=== PATIENT | female | born 1960 | race African-American/Black ===

== ENCOUNTER 2018-09-08 10:57 | Emergency (ER) | payer SELFPAY ==
[~2018-09-08] VITALS: Ht 152.4 cm; Wt 68.0 kg
[2018-09-08] MEDS ORDERED: HYDROCODONE/ACETAMINOPHEN 5/325MG TABLET PO ONE (15:00)
[2018-09-08 15:06] LABS: BASOPHILS % 0.9 % (0.0-2.0); EOSINOPHILS % 2.3 % (0.0-5.0); HEMATOCRIT. 38.5 % (36.0-48.0); HEMOGLOBIN. 12.8 g/dL (12.0-16.0); LYMPHOCYTES % 35.2 % (20.0-50.0); MEAN CORPUSCULAR HEMOGLOBIN 28.1 pg (28.0-32.0); MEAN CORPUSCULAR VOLUME 84.5 fL (81.0-99.0); MEAN PLATELET VOLUME 7.9 fl (7.4-10.4); MONOCYTES % 13.7 % (2.0-8.0); NEUTROPHILS % 47.9 % (40.0-76.0); PLATELET 188 x1000/uL (130-400); RED BLOOD CELL COUNT 4.56 mill/uL (4.2-5.4); RED CELL DISTRIBUTION WIDTH 16.3 % (11.6-14.6)
[2018-09-08] MEDS ORDERED: IBUPROFEN 800MG TABLET PO ONE (15:15)
[2018-09-08 15:17] LABS: CHLORIDE 113 mEq/L (98-107)
[2018-09-08 15:20] LABS: CLARITY URINE CLEAR (CLEAR); COLOR URINE YELLOW (YELLOW); KETONES URINE TRACE (NEGATIVE); LEUKOCYTE ESTERASE URINE NEGATIVE (NEGATIVE); NITRITE URINE NEGATIVE (NEGATIVE); OCCULT BLOOD URINE NEGATIVE (NEGATIVE); PH URINE 5.5 (4.5-8.0); PROTEIN URINE TRACE (NEGATIVE); SPECIFIC GRAVITY URINE 1.029 (1.005-1.030)
[2018-09-08 18:07] VITALS: BP 144/85
== END 2018-09-08 18:07 | disposition home or self-care (01) ==
LOC: ER 10:57
DX: R10.2 Pelvic and perineal pain (principal); D25.9 Leiomyoma of uterus, unspecified; F12.10 Cannabis abuse, uncomplicated; F17.210 Nicotine dependence, cigarettes, uncomplicated; Z98.890 Other specified postprocedural states; Z91.018 Allergy to other foods
CPT/HCPCS: 36415; 76830; 76856; 80048; 99284

== ENCOUNTER 2018-12-12 10:29 | Emergency (ER) | payer OTHER ==
[~2018-12-12] VITALS: Ht 154.9 cm; Wt 68.0 kg
[2018-12-12 11:46] LABS: BASOPHILS % 0.8 % (0.0-2.0); EOSINOPHILS % 0.5 % (0.0-5.0); HEMOGLOBIN. 12.6 g/dL (12.0-16.0); LYMPHOCYTES % 25.2 % (20.0-50.0); MEAN CORPUSCULAR HEMOGLOBIN 28.9 pg (28.0-32.0); MEAN PLATELET VOLUME 8.6 fl (7.4-10.4); MONOCYTES % 11.3 % (2.0-8.0); NEUTROPHILS % 62.2 % (40.0-76.0); PLATELET 183 x1000/uL (130-400); RED BLOOD CELL COUNT 4.35 mill/uL (4.2-5.4); RED CELL DISTRIBUTION WIDTH 16.2 % (11.6-14.6)
[2018-12-12 11:55] LABS: CHLORIDE 108 mEq/L (98-107)
[2018-12-12] MEDS ORDERED: HYDRALAZINE 20MG/ML VIAL IV ONE (18:30)
[2018-12-12 18:54] VITALS: BP 165/58
== END 2018-12-12 18:56 | disposition short-term general hospital (02) ==
LOC: ER 10:29
DX: R06.02 Shortness of breath (principal); I50.9 Heart failure, unspecified; I10 Essential (primary) hypertension; F17.210 Nicotine dependence, cigarettes, uncomplicated; F12.10 Cannabis abuse, uncomplicated; Z91.018 Allergy to other foods; Z91.14 Patient's other noncompliance with medication regimen; Z98.890 Other specified postprocedural states
CPT/HCPCS: 36415; 71045; 80053; 83880; 84484; 85025; 93005; 96374; 99285; J0360

== ENCOUNTER 2019-02-24 04:22 | Emergency (ER) | payer OTHER ==
[~2019-02-24] VITALS: Ht 154.9 cm; Wt 66.0 kg
[2019-02-24 05:02] LABS: BASOPHILS % 0.6 % (0.0-2.0); EOSINOPHILS % 1.4 % (0.0-5.0); HEMATOCRIT. 35.2 % (36.0-48.0); HEMOGLOBIN. 11.8 g/dL (12.0-16.0); MEAN CORPUSCULAR HEMOGLOBIN 28.6 pg (28.0-32.0); MEAN CORPUSCULAR VOLUME 85.2 fL (81.0-99.0); MEAN PLATELET VOLUME 8.2 fl (7.4-10.4); MONOCYTES % 9.3 % (2.0-8.0); NEUTROPHILS % 64.7 % (40.0-76.0); PLATELET 188 x1000/uL (130-400); RED BLOOD CELL COUNT 4.13 mill/uL (4.2-5.4); RED CELL DISTRIBUTION WIDTH 15.8 % (11.6-14.6)
[2019-02-24 05:08] LABS: CHLORIDE 111 mEq/L (98-107)
[2019-02-24] MEDS ORDERED: KETOROLAC 15MG/ML VIAL IV NR (05:30)
[2019-02-24] MEDS ORDERED: MORPHINE SULFATE 4 MG/ML CPJ (NOT FOR IM USE) IV NR (05:30)
[2019-02-24 06:08] VITALS: BP 145/59
== END 2019-02-24 06:11 | disposition home or self-care (01) ==
LOC: ER 04:22
DX: M54.9 Dorsalgia, unspecified (principal); I11.0 Hypertensive heart disease with heart failure; I50.9 Heart failure, unspecified; Z87.891 Personal history of nicotine dependence; Z91.018 Allergy to other foods
CPT/HCPCS: 36415; 71045; 80053; 83880; 84484; 85025; 93005; 96374; 99284; J1885

== ENCOUNTER 2020-11-08 19:35 | Inpatient (IN) | payer OTHER ==
[~2020-11-08] VITALS: Ht 154.9 cm; Wt 70.8 kg
[2020-11-08 20:31] LABS: BASOPHILS % 0.8 % (0.0-2.0); EOSINOPHILS % 1.5 % (0.0-5.0); HEMATOCRIT. 37.3 % (36.0-48.0); HEMOGLOBIN. 12.8 g/dL (12.0-16.0); LYMPHOCYTES % 28.8 % (20.0-50.0); MEAN CORPUSCULAR HEMOGLOBIN 28.5 pg (28.0-32.0); MEAN CORPUSCULAR VOLUME 82.9 fL (81.0-99.0); MEAN PLATELET VOLUME 7.9 fl (7.4-10.4); MONOCYTES % 8.6 % (2.0-8.0); NEUTROPHILS % 60.3 % (40.0-76.0); PLATELET 224 x1000/uL (130-400); RED CELL DISTRIBUTION WIDTH 14.9 % (11.6-14.6)
[2020-11-08 20:34] LABS: CHLORIDE 106 mEq/L (98-107)
[2020-11-09] MEDS ORDERED: HYDROCODONE/ACETAMINOPHEN 5/325MG TABLET PO PRN (00:45)
[2020-11-09 02:00] VITALS: BP 147/38
[2020-11-09] MEDS ORDERED: FURO40TA5 PO (03:17)
[2020-11-09] MEDS ORDERED: ATOR10TA PO (03:17)
[2020-11-09] MEDS ORDERED: AMLO-79 PO (03:17)
[2020-11-09 04:00] VITALS: BP 121/32
[2020-11-09 08:00] VITALS: BP 118/74
[2020-11-09] MEDS ORDERED: FUROSEMIDE 40MG/4ML VIAL IVP SCH (09:00)
[2020-11-09] MEDS ORDERED: AMLODIPINE 5MG TABLET PO SCH (09:00)
[2020-11-09] MEDS ORDERED: ASPIRIN 81MG TABLET PO SCH (09:00)
[2020-11-09] MEDS ORDERED: ENOXAPARIN 40MG/0.4ML SYR SUBCUT SCH (09:00)
[2020-11-09] MEDS ORDERED: LISINOPRIL 10MG TABLET PO SCH (09:00)
[2020-11-09 12:00] VITALS: BP 136/40
[2020-11-09] MEDS ORDERED: ONDANSETRON HCL 4MG/2ML INJ IV PRN (13:15)
[2020-11-09 15:09] VITALS: BP 136/40
[2020-11-09] MEDS ORDERED: ATORVASTATIN CALCIUM 40MG TABLET PO SCH (21:00)
== END 2020-11-09 17:08 | disposition home or self-care (01) | DRG 293 ==
LOC: ER 19:35 → 6WST 23:54 → EDBEDREQ 23:58 → EDBEDREQTM 23:58 → ENRESERV 11-09 01:19
PROVIDERS: ADMIT Internal Medicine; ATTEND Internal Medicine
DX: I11.0 Hypertensive heart disease with heart failure (principal); I50.43 Acute on chronic combined systolic (congestive) and diastolic (congestive) heart failure; Z91.018 Allergy to other foods; Z91.11 Patient's noncompliance with dietary regimen; Z91.19 Patient's noncompliance with other medical treatment and regimen
CPT/HCPCS: 36415; 71045; 80053; 83880; 84484; 85025; 93005; 93306; 99285; J1650; J1940; J2405

== ENCOUNTER 2021-01-13 03:09 | Emergency (ER) | payer OTHER ==
[~2021-01-13] VITALS: Ht 154.9 cm; Wt 68.0 kg
[~2021-01-13 03:09] MED LIST: AMLO-79 PO; ATOR10TA PO; FURO40TA5 PO
[2021-01-13] MEDS ORDERED: NAPR500T7 PO (03:23)
[2021-01-13 04:29] VITALS: BP 126/74
== END 2021-01-13 04:30 | disposition home or self-care (01) ==
LOC: ER 03:28
DX: G89.29 Other chronic pain (principal); R07.89 Other chest pain; I11.0 Hypertensive heart disease with heart failure; I50.9 Heart failure, unspecified; Z91.018 Allergy to other foods
CPT/HCPCS: 93005; 99283

== ENCOUNTER 2021-05-10 22:28 | Emergency (ER) | payer OTHER ==
[~2021-05-10] VITALS: Ht 154.9 cm; Wt 68.0 kg
[~2021-05-10 22:28] MED LIST changes: +NAPR500T7 PO
[2021-05-11 01:25] LABS: BASOPHILS % 0.5 % (0.0-2.0); EOSINOPHILS % 2.2 % (0.0-5.0); HEMATOCRIT. 34.8 % (36.0-48.0); HEMOGLOBIN. 11.3 g/dL (12.0-16.0); LYMPHOCYTES % 34.7 % (20.0-50.0); MEAN CORPUSCULAR HEMOGLOBIN 26.3 pg (28.0-32.0); MEAN CORPUSCULAR VOLUME 80.7 fL (81.0-99.0); MEAN PLATELET VOLUME 7.8 fl (7.4-10.4); MONOCYTES % 9.2 % (2.0-8.0); NEUTROPHILS % 53.4 % (40.0-76.0); PLATELET 235 x1000/uL (130-400); RED BLOOD CELL COUNT 4.31 mill/uL (4.2-5.4); RED CELL DISTRIBUTION WIDTH 17.5 % (11.6-14.6)
[2021-05-11 01:31] LABS: CHLORIDE 109 mEq/L (98-107)
[2021-05-11] MEDS ORDERED: MORPHINE SULFATE 2 MG/ML CPJ (NOT FOR IM USE) IV ONE (04:15)
[2021-05-11] MEDS ORDERED: ONDANSETRON HCL 4MG/2ML INJ IV ONE (04:15)
[2021-05-11] MEDS ORDERED: ASPIRIN 325MG EC TABLET PO ONE (04:30)
[2021-05-11 06:03] VITALS: BP 129/87
== END 2021-05-11 06:05 | disposition home or self-care (01) ==
LOC: ER 22:28
DX: R07.89 Other chest pain (principal); I11.0 Hypertensive heart disease with heart failure; I50.9 Heart failure, unspecified; Z98.890 Other specified postprocedural states
CPT/HCPCS: 36415; 71045; 80053; 83880; 84484; 85025; 93005; 99285

== ENCOUNTER 2021-05-29 02:08 | Emergency (ER) | payer OTHER ==
[~2021-05-29] VITALS: Ht 154.9 cm; Wt 69.0 kg
[2021-05-29] MEDS ORDERED: IPRATROPIUM BROMIDE (0.02%) 0.5MG/2.5ML NEB HHN STA (02:39)
[2021-05-29] MEDS ORDERED: NITROGLYCERIN 0.4MG TABLET SL SL PRN (02:45)
[2021-05-29 03:07] LABS: BASOPHILS % 0.8 % (0.0-2.0); HEMATOCRIT. 32.9 % (36.0-48.0); HEMOGLOBIN. 10.9 g/dL (12.0-16.0); LYMPHOCYTES % 20.8 % (20.0-50.0); MEAN CORPUSCULAR HEMOGLOBIN 26.5 pg (28.0-32.0); MEAN CORPUSCULAR VOLUME 79.7 fL (81.0-99.0); MEAN PLATELET VOLUME 7.7 fl (7.4-10.4); MONOCYTES % 7.7 % (2.0-8.0); NEUTROPHILS % 69.7 % (40.0-76.0); PLATELET 203 x1000/uL (130-400); RED BLOOD CELL COUNT 4.13 mill/uL (4.2-5.4); RED CELL DISTRIBUTION WIDTH 17.5 % (11.6-14.6)
[2021-05-29 03:13] LABS: CHLORIDE 113 mEq/L (98-107)
[2021-05-29] MEDS: ASPIRIN 81MG TABLET PO ONE (03:16)
[2021-05-29] MEDS: PREDNISONE 20MG TABLET PO STA (03:16)
[2021-05-29] MEDS: ALBUTEROL (0.083%) 2.5MG/3ML NEB HHN STA (03:50)
[2021-05-29] MEDS: FUROSEMIDE 100MG/10ML VIAL IVP NR (03:55)
[2021-05-29] MEDS: ONDANSETRON HCL 4MG/2ML INJ IV PRN (04:04)
[2021-05-29 13:21] VITALS: BP 128/55
== END 2021-05-29 13:22 | disposition left against medical advice (07) ==
LOC: ER 02:08 → CANBEDREQ 05-30 01:11
DX: I50.9 Heart failure, unspecified (principal); R01.1 Cardiac murmur, unspecified; Z87.891 Personal history of nicotine dependence; Z91.018 Allergy to other foods; Z20.822 Contact with and (suspected) exposure to COVID-19
CPT/HCPCS: 36415; 71045; 80053; 83880; 84484; 85025; 87426; 93005; 94640; 96374; 96375; 99291; J1940; J2405; J7512; Z7610

== ENCOUNTER 2021-06-06 01:57 | Inpatient (IN) | payer OTHER ==
[~2021-06-06] VITALS: Ht 154.9 cm; Wt 82.6 kg
[2021-06-06] MEDS ORDERED: ASPIRIN 81MG TABLET PO ONE (02:30)
[2021-06-06] MEDS ORDERED: ACETAMINOPHEN 325MG TABLET PO ONE (02:30)
[2021-06-06] MEDS ORDERED: FUROSEMIDE 40MG TABLET PO ONE (02:30)
[2021-06-06 02:35] LABS: BASOPHILS % 0.8 % (0.0-2.0); EOSINOPHILS % 1.8 % (0.0-5.0); HEMOGLOBIN. 11.3 g/dL (12.0-16.0); LYMPHOCYTES % 24.7 % (20.0-50.0); MEAN CORPUSCULAR HEMOGLOBIN 26.5 pg (28.0-32.0); MEAN PLATELET VOLUME 7.8 fl (7.4-10.4); MONOCYTES % 7.7 % (2.0-8.0); PLATELET 198 x1000/uL (130-400); RED BLOOD CELL COUNT 4.25 mill/uL (4.2-5.4)
[2021-06-06 02:39] LABS: CHLORIDE 111 mEq/L (98-107)
[2021-06-06] MEDS ORDERED: NALOXONE HCL 0.4MG/ML VIAL IV PRN (07:00)
[2021-06-06] MEDS ORDERED: HYDROCODONE/ACETAMINOPHEN 10/325MG TABLET PO PRN (07:00)
[2021-06-06] MEDS ORDERED: IPRATROPIUM/ALBUTEROL 0.5-3(2.5)MG/3ML NEB HHN PRN (07:00)
[2021-06-06 12:14] LABS: CLARITY URINE CLEAR (CLEAR); COLOR URINE YELLOW (YELLOW); KETONES URINE NEGATIVE (NEGATIVE); LEUKOCYTE ESTERASE URINE NEGATIVE (NEGATIVE); NITRITE URINE NEGATIVE (NEGATIVE); OCCULT BLOOD URINE NEGATIVE (NEGATIVE); PH URINE 6.5 (4.5-8.0); PROTEIN URINE NEGATIVE (NEGATIVE); SPECIFIC GRAVITY URINE 1.017 (1.005-1.030)
[2021-06-06] MEDS ORDERED: ONDANSETRON HCL 4MG/2ML INJ IV PRN (14:45)
[2021-06-06] MEDS ORDERED: ACETAMINOPHEN 325MG TABLET PO PRN (14:45)
[2021-06-06] MEDS: FUROSEMIDE 40MG/4ML VIAL IVP SCH (15:47)
[2021-06-06 16:00] VITALS: BP 159/69
[2021-06-06 16:18] VITALS: BP 159/69
[2021-06-06 20:00] VITALS: BP 143/52
[2021-06-06] MEDS ORDERED: ZOLPIDEM TARTRATE 5MG TABLET PO PRN (20:30)
[2021-06-07] VITALS: BP 156/52
[2021-06-07 04:00] VITALS: BP 126/80
[2021-06-07 06:06] LABS: BASOPHILS % 0.8 % (0.0-2.0); EOSINOPHILS % 2.4 % (0.0-5.0); HEMATOCRIT. 35.3 % (36.0-48.0); HEMOGLOBIN. 11.6 g/dL (12.0-16.0); LYMPHOCYTES % 30.2 % (20.0-50.0); MEAN CORPUSCULAR HEMOGLOBIN 26.1 pg (28.0-32.0); MEAN CORPUSCULAR VOLUME 79.6 fL (81.0-99.0); MEAN PLATELET VOLUME 8.4 fl (7.4-10.4); MONOCYTES % 9.6 % (2.0-8.0); PLATELET 221 x1000/uL (130-400); RED BLOOD CELL COUNT 4.44 mill/uL (4.2-5.4); RED CELL DISTRIBUTION WIDTH 17.8 % (11.6-14.6)
[2021-06-07 08:04] VITALS: BP 100/50
[2021-06-07] MEDS: FUROSEMIDE 40MG/4ML VIAL IVP SCH ×3 (08:24→17:20)
[2021-06-07 10:13] LABS: CHLORIDE 109 mEq/L (98-107)
[2021-06-07] MEDS: SPIRONOLACTONE 25MG TABLET PO SCH (10:51)
[2021-06-07 11:50] VITALS: BP 111/33
[2021-06-07 15:56] VITALS: BP 135/43
[2021-06-07 20:00] VITALS: BP 123/80
[2021-06-08] VITALS (7 sets, daily range): BP systolic 100–138; BP diastolic 33–60
[2021-06-08] MEDS: FUROSEMIDE 40MG/4ML VIAL IVP SCH (05:56)
[2021-06-08] MEDS: SPIRONOLACTONE 25MG TABLET PO SCH (07:54)
[2021-06-08] MEDS ORDERED: NICARDIPINE 100MCG/ML 10ML VIAL (CATH LAB) IV ONE (10:14)
[2021-06-08] MEDS ORDERED: NITROGLYCERIN 50MCG/ML 10ML VIAL (CATH LAB) IV ONE (10:14)
[2021-06-08] MEDS ORDERED: HEPARIN SODIUM 1,000 UNIT/1ML VIAL IV ONE (10:14)
[2021-06-08] MEDS ORDERED: MIDAZOLAM HCL 2 MG/2 ML VIAL ONE (13:23)
[2021-06-08] MEDS ORDERED: FENTANYL CITRATE/PF 50MCG/ML 2ML VIAL ONE (13:23)
[2021-06-08] MEDS ORDERED: VERAPAMIL HCL 2.5 MG/1 ML 2ML VIAL IV ONE (13:23)
[2021-06-08] MEDS ORDERED: LIDOCAINE HCL 1% 20ML VIAL (Pyxis) INJ ONE (13:24)
[2021-06-08] MEDS ORDERED: IODIXANOL 320MG/ML 100 ML BOTTLE IV ONE (13:24)
[2021-06-08] MEDS ORDERED: ATROPINE SULFATE 1MG/10ML SYR IV PRN (14:15)
[2021-06-08] MEDS ORDERED: FURO40TA5 PO (17:39)
[2021-06-09] MEDS ORDERED: FUROSEMIDE 40MG TABLET PO SCH (09:00)
== END 2021-06-08 18:52 | disposition home or self-care (01) | DRG 280 ==
LOC: ER 01:57 → 8WST 03:45 → EDBEDREQTM 03:47 → EDBEDREQ 03:47 → ENRESERV 15:13
PROVIDERS: ADMIT Internal Medicine; ATTEND Internal Medicine
PROC: B211YZZ Fluoroscopy of Multiple Coronary Arteries using Other Contrast (ICD-10-PCS; principal; 2021-06-08)
PROC: B54MZZA Ultrasonography of Right Upper Extremity Veins, Guidance (ICD-10-PCS; 2021-06-08)
DX: I21.4 Non-ST elevation (NSTEMI) myocardial infarction (principal); I50.33 Acute on chronic diastolic (congestive) heart failure; I11.0 Hypertensive heart disease with heart failure; F17.210 Nicotine dependence, cigarettes, uncomplicated; J44.9 Chronic obstructive pulmonary disease, unspecified; E87.8 Other disorders of electrolyte and fluid balance, not elsewhere classified; I25.10 Atherosclerotic heart disease of native coronary artery without angina pectoris; Z20.822 Contact with and (suspected) exposure to COVID-19; I35.2 Nonrheumatic aortic (valve) stenosis with insufficiency; Z91.14 Patient's other noncompliance with medication regimen; Z91.018 Allergy to other foods; Z79.899 Other long term (current) drug therapy; Z79.84 Long term (current) use of oral hypoglycemic drugs; Z71.6 Tobacco abuse counseling
CPT/HCPCS: 36415; 71045; 80048; 80053; 81003; 83880; 84484; 85025; 87426; 93005; 93306; 93455; 94640; 99285; C1769; C1887; C1893; J1644; J1940; J2250; J2405; J3010; J3490; Q9967

== ENCOUNTER 2022-06-24 19:13 | Inpatient (IN) | payer OTHER ==
[~2022-06-24] VITALS: Ht 154.9 cm; Wt 73.0 kg
[~2022-06-24 19:13] MED LIST changes: +AMLO-138 PO; -AMLO-79 PO; -NAPR500T7 PO
[2022-06-24] MEDS ORDERED: HYDRALAZINE HCL 50MG TABLET PO ONE (20:00)
[2022-06-24] MEDS ORDERED: CARVEDILOL 12.5MG TABLET PO ONE (20:00)
[2022-06-24] MEDS ORDERED: CHLORPROMAZINE HCL 25 MG TABLET PO ONE (20:00)
[2022-06-24] MEDS ORDERED: MORPHINE SULFATE 4 MG/ML CPJ (NOT FOR IM USE) IV STA (21:11)
[2022-06-24] MEDS ORDERED: HYDRALAZINE 20MG/ML VIAL IV ONE (21:15)
[2022-06-24 22:09] LABS: BASOPHILS % 0.4 % (0.0-2.0); EOSINOPHILS % 1.3 % (0.0-5.0); HEMOGLOBIN. 14.7 g/dL (12.0-16.0); LYMPHOCYTES % 27.1 % (20.0-50.0); MEAN CORPUSCULAR HEMOGLOBIN 30.1 pg (28.0-32.0); MEAN CORPUSCULAR VOLUME 85.7 fL (81.0-99.0); MEAN PLATELET VOLUME 7.5 fl (7.4-10.4); MONOCYTES % 10.3 % (2.0-8.0); NEUTROPHILS % 60.9 % (40.0-76.0); PLATELET 246 x1000/uL (130-400); RED CELL DISTRIBUTION WIDTH 15.1 % (11.6-14.6)
[2022-06-24 22:13] LABS: CHLORIDE 107 mEq/L (98-107)
[2022-06-24] MEDS ORDERED: KETOROLAC 15MG/ML VIAL IV ONE (22:15)
[2022-06-24] MEDS ORDERED: ASPIRIN 325MG EC TABLET PO ONE (22:45)
[2022-06-25] MEDS ORDERED: ENOXAPARIN 40MG/0.4ML SYR SUBCUT NR (01:45)
[2022-06-25 10:25] LABS: CLARITY URINE CLOUDY (CLEAR); COLOR URINE YELLOW (YELLOW); KETONES URINE 1+ (NEGATIVE); LEUKOCYTE ESTERASE URINE NEGATIVE (NEGATIVE); NITRITE URINE NEGATIVE (NEGATIVE); OCCULT BLOOD URINE NEGATIVE (NEGATIVE); PH URINE 5.5 (4.5-8.0); PROTEIN URINE 1+ (NEGATIVE); SPECIFIC GRAVITY URINE 1.027 (1.005-1.030)
[2022-06-25] MEDS ORDERED: AMLODIPINE 10MG TABLET PO SCH (10:30)
[2022-06-25] MEDS ORDERED: ACETAMINOPHEN 325MG TABLET PO PRN (10:30)
[2022-06-25] MEDS ORDERED: ONDANSETRON HCL 4MG/2ML INJ IV PRN (10:30)
[2022-06-25] MEDS ORDERED: HYDRALAZINE HCL 50MG TABLET PO SCH (12:00)
[2022-06-25 13:00] VITALS: BP 155/90
== END 2022-06-25 13:27 | disposition home or self-care (01) | DRG 305 ==
LOC: ER 19:13 → EDBEDREQ 06-25 00:03 → EDBEDREQTM 06-25 00:03 → 7WST 06-25 02:38 → MICUSO 06-25 03:39
PROVIDERS: ADMIT Internal Medicine; ATTEND Internal Medicine
DX: I16.1 Hypertensive emergency (principal); I50.32 Chronic diastolic (congestive) heart failure; I11.0 Hypertensive heart disease with heart failure; E66.9 Obesity, unspecified; I25.10 Atherosclerotic heart disease of native coronary artery without angina pectoris; M48.061 Spinal stenosis, lumbar region without neurogenic claudication; Z91.14 Patient's other noncompliance with medication regimen; Z95.2 Presence of prosthetic heart valve
CPT/HCPCS: 36415; 74176; 80053; 81003; 84484; 85025; 93005; 99291; J0360; J1650; J1885; J2270; Q0161